=== PATIENT | female | born 1980 | race African-American/Black ===

== ENCOUNTER 2022-04-26 00:44 | Inpatient (IN) ==
[2022-04-26] MEDS ORDERED: MORPHINE 2 MG/1 ML SYRINGE IV ONE (00:55)
[2022-04-26] MEDS ORDERED: ALBUTEROL/IPRATROPIUM 3 ML NEB RESP TX STA (00:55)
[2022-04-26] MEDS ORDERED: ONDANSETRON 4 MG/2 ML VIAL IV ONE (00:55)
[2022-04-26] MEDS ORDERED: hydrALAZINE 20 MG/1 ML VIAL IV STA (00:56)
[2022-04-26 01:26] LABS: Arterial Base Excess iSTAT 0 MMOL/L (-2.5-2.5); Arterial O2 Saturation iSTAT 95 % (95-100); Arterial PCO2 iSTAT 35 MM HG (35-48); Arterial PO2 iSTAT 72 MM HG (80-95); Arterial Total CO2 iSTAT 25 MMO/L (23-27); Arterial pH iSTAT 7.449 (7.35-7.45)
[2022-04-26 01:31] LABS: Basophils # 0.1 10*3/uL (0.0-0.2); Basophils % 0.3 % (0.0-0.8); Eosinophils # 0.4 10*3/uL (0.0-0.87); Eosinophils % 2.7 % (0.00-10.9); Hematocrit 35.2 VOL% (35.7-47.0); Hemoglobin 10.8 GM/DL (12.0-16.0); Immature Granulocytes % 0.7 %; Immature Granulocytes Absolute 0.11 #; Lymphocytes # 2.5 10*3/uL (1.4-4.0); Lymphocytes % 16.8 % (21.3-54.2); Mean Corpuscular HGB Conc 30.7 GM/DL (32-36); Mean Platelet Volume 10.2 FL (9.6-12.0); Monocytes % 6.7 % (1.7-12.7); Neutrophils % 72.8 % (38.7-73.9); Platelet Count 357 T/CUMM (130-400); Red Blood Count 3.87 MC/CUMM (3.8-5.5); Red Cell Distribution Width 15.2 % (9.3-17.3)
[2022-04-26 01:39] LABS: INR 0.8; PT Patient Result 9.3 SECS (10.1-12.1)
[2022-04-26 01:42] LABS: Partial Thromboplastin Time < 20.0 SECS (23.7-32.9)
[2022-04-26 01:45] LABS: Alanine Aminotransferase 17 U/L (13-56); Albumin 1.9 G/DL (3.4-5.0); Alkaline Phosphatase 68 U/L (45-117); Aspartate Amino Transferase 12 U/L (0-37); Bilirubin,Total < 0.39 MG/DL (0.20-1.00); Blood Urea Nitrogen 15 MG/DL (7-18); Carbon Dioxide 25 MMOL/L (21-32); Chloride 109 MMOL/L (98-107); Glucose 100 MG/DL (74-106); Osmolality,Calculated 279.4 MOS/KG (273-304); Potassium 4.5 MMOL/L (3.5-5.1); Sodium 140 MMOL/L (136-145); Total Protein 5.5 G/DL (6.4-8.2)
[2022-04-26] MEDS ORDERED: PIPERACILLIN/TAZOBACTAM 3,375 MG in SODIUM CHLORIDE 0.9% 100 ML IV STA (02:01)
[2022-04-26] MEDS ORDERED: VANCOMYCIN INJ 1,000 MG in SODIUM CHLORIDE 0.9% 250 ML IV STA (02:01)
[2022-04-26] MEDS ORDERED: MORPHINE 2 MG/1 ML SYRINGE IV STA (02:09)
[2022-04-26] MEDS ORDERED: MORPHINE 2 MG/1 ML SYRINGE IV PRN (03:10)
[2022-04-26] MEDS ORDERED: ONDANSETRON 4 MG/2 ML VIAL IV PRN (03:10)
[2022-04-26] MEDS ORDERED: hydrALAZINE 20 MG/1 ML VIAL IV PRN (03:10)
[2022-04-26] MEDS ORDERED: ACETAMINOPHEN 325 MG TABLET PO PRN (03:10)
[2022-04-26] MEDS ORDERED: SIMETHICONE CHEW 125 MG TABLET PO PRN (03:10)
[2022-04-26] MEDS ORDERED: DEXTROSE 10% 250 ML BAG IV PRN (03:21)
[2022-04-26] MEDS ORDERED: GLUCAGON 1 MG VIAL IM PRN (03:21)
[2022-04-26] MEDS ORDERED: NICOTINE 21 MG/24 HR PATCH TRANSDERM PRN (03:22)
[2022-04-26] MEDS ORDERED: SODIUM CHLORIDE 0.45% 1,000 ML IV SCH (03:30)
[2022-04-26] MEDS ORDERED: FUROSEMIDE 40 MG/4 ML VIAL IV STA (04:01)
[2022-04-26 05:03] LABS: Urine Appearance Clear (Clear); Urine Color Yellow (Yellow); Urine pH 6.5 (4.5-8.0)
[2022-04-26 05:04] LABS: Bilirubin,Urine Negative (Negative); Blood, Urine Trace mg/dL (Negative); Glucose,Urine (UA) Negative (Negative); Ketones,Urine Negative (Negative); Nitrite,Urine Negative (Negative); Protein,Urine >=300 mg/dL (Negative); Urine Urobilinogen 0.2 eU/dL (<2.0)
[2022-04-26 05:05] LABS: Bacteria,Urine Occasional /HPF (Few); Mucus,Urine Occasional /LPF (Occasional); RBC,Urine 12 /HPF (0-4); Squamous Epithelial Cell,Urine Occasional /HPF (0-10)
[2022-04-26 05:25] LABS: Barbiturates Screen,Urine Negative (Negative); Benzodiazepines Screen,Urine Negative (Negative); Cannabinoid Screen,Urine Negative (Negative); Opiate Screen,Urine Positive (Negative); Phencyclidine Screen,Urine Negative (Negative)
[2022-04-26] MEDS: ALBUTEROL/IPRATROPIUM 3 ML NEB RESP TX SCH ×3 (07:10→19:20)
[2022-04-26] MEDS: PIPERACILLIN/TAZOBACTAM 3,375 MG in SODIUM CHLORIDE 0.9% 100 ML IV SCH ×2 (10:14→17:39)
[2022-04-26] MEDS: ENOXAPARIN 40 MG/0.4 ML SYRINGE SUBCUT SCH (10:17)
[2022-04-26] MEDS: DOCUSATE SODIUM 100 MG CAPSULE PO SCH ×2 (10:17→21:33)
[2022-04-26] MEDS: CHOLECALCIFEROL 5,000 UNIT TABLET PO SCH (10:17)
[2022-04-26] MEDS: PANTOPRAZOLE 40 MG TABLET PO SCH (10:17)
[2022-04-26] MEDS: AZITHROMYCIN 250 MG TABLET PO SCH (10:17)
[2022-04-26] MEDS: amLODIPine 10 MG TABLET PO SCH (10:17)
[2022-04-26] MEDS: carvediloL 3.125 MG TABLET PO SCH ×2 (10:18→16:45)
[2022-04-26] MEDS: INSULIN REGULAR 100 UNIT/ML SUBCUT SCH ×4 (10:19→21:35)
[2022-04-26] MEDS: INSULIN GLARGINE 100 UNIT/ML SUBCUT SCH (10:19)
[2022-04-26] MEDS: VANCOMYCIN INJ 1,250 MG in SODIUM CHLORIDE 0.9% 250 ML IV SCH (14:41)
[2022-04-26] MEDS ORDERED: FOLIC ACID 1 MG TABLET PO SCH (21:00)
[2022-04-27] MEDS: PIPERACILLIN/TAZOBACTAM 3,375 MG in SODIUM CHLORIDE 0.9% 100 ML IV SCH ×2 (03:24→09:18)
[2022-04-27] MEDS: VANCOMYCIN INJ 1,250 MG in SODIUM CHLORIDE 0.9% 250 ML IV SCH (03:37)
[2022-04-27 04:14] VITALS: BP 102/66
[2022-04-27 06:28] LABS: Basophils # 0.1 10*3/uL (0.0-0.2); Basophils % 0.4 % (0.0-0.8); Eosinophils # 0.3 10*3/uL (0.0-0.87); Eosinophils % 1.6 % (0.00-10.9); Hematocrit 34.1 VOL% (35.7-47.0); Hemoglobin 10.4 GM/DL (12.0-16.0); Immature Granulocytes % 0.6 %; Lymphocytes # 1.8 10*3/uL (1.4-4.0); Lymphocytes % 11.1 % (21.3-54.2); Mean Corpuscular HGB Conc 30.5 GM/DL (32-36); Mean Corpuscular Volume 92.7 FL (87-102); Mean Platelet Volume 10.3 FL (9.6-12.0); Monocytes # 0.7 10*3/uL (0.11-0.8); Monocytes % 4.5 % (1.7-12.7); Neutrophils % 81.8 % (38.7-73.9); Platelet Count 301 T/CUMM (130-400); Red Blood Count 3.68 MC/CUMM (3.8-5.5); White Blood Count 15.9 T/CUMM (4-12)
[2022-04-27 06:43] LABS: Calcium 8.1 MG/DL (8.5-10.1); Osmolality,Calculated 276.7 MOS/KG (273-304); Potassium 4.5 MMOL/L (3.5-5.1)
[2022-04-27] MEDS: ALBUTEROL/IPRATROPIUM 3 ML NEB RESP TX SCH ×2 (07:17)
[2022-04-27] MEDS: INSULIN REGULAR 100 UNIT/ML SUBCUT SCH ×2 (08:55→11:44)
[2022-04-27] MEDS: carvediloL 3.125 MG TABLET PO SCH (09:16)
[2022-04-27] MEDS: PANTOPRAZOLE 40 MG TABLET PO SCH (09:17)
[2022-04-27] MEDS: ENOXAPARIN 40 MG/0.4 ML SYRINGE SUBCUT SCH (09:17)
[2022-04-27] MEDS: CHOLECALCIFEROL 5,000 UNIT TABLET PO SCH (09:17)
[2022-04-27] MEDS: INSULIN GLARGINE 100 UNIT/ML SUBCUT SCH (09:17)
[2022-04-27] MEDS: amLODIPine 10 MG TABLET PO SCH (09:17)
[2022-04-27] MEDS: DOCUSATE SODIUM 100 MG CAPSULE PO SCH (09:17)
[2022-04-27] MEDS: AZITHROMYCIN 250 MG TABLET PO SCH (09:18)
== END 2022-04-27 14:34 | disposition home or self-care (01) | DRG 194 ==
LOC: EDUNIT# → EDBD → N.ED 00:44 → N.3E 03:10
PROVIDERS: ADMIT Internal Medicine; ATTEND Internal Medicine